=== PATIENT | male | born 1990 | race Two or more races ===

== ENCOUNTER 2024-12-26 11:37 | Emergency (ER) | payer OTHER ==
[~2024-12-26] VITALS: Ht 170.2 cm; Wt 88.5 kg
[2024-12-26] MEDS ORDERED: HYDROGEN PEROXIDE 473 ML BOTTLE TOP ONE (11:39)
[2024-12-26] MEDS ORDERED: POVIDONE-IODINE 118 ML BOTT TOP ONE ×2 (11:39→12:21)
[2024-12-26] MEDS ORDERED: WELLBUTRIN SR150 MG (11:53)
[2024-12-26] MEDS ORDERED: SEROQUEL50 MG (11:53)
[2024-12-26] MEDS ORDERED: PAXIL CR25 MG (11:53)
[2024-12-26] MEDS ORDERED: BUSPIRONE HCL7.5 MG (11:53)
[2024-12-26] MEDS ORDERED: TRAZODONE HCL50 MG (11:54)
[2024-12-26] MEDS ORDERED: LIDOCAINE HCL 1% 10ML VIAL ONE ×2 (12:23→13:59)
[2024-12-26] MEDS ORDERED: POVIDONE-IODINE SCRUB 118 ML BOTT TOP ONE (12:30)
[2024-12-26] MEDS ORDERED: ACETAMINOPHEN WITH CODEINE 1 UDTAB TABLET PO ONE (12:30)
[2024-12-26] MEDS ORDERED: TETANUS & DIPHTHERIA TOX,ADULT 0.5 ML VIAL IM ONE (12:30)
[2024-12-26] MEDS ORDERED: LIDOCAINE HCL 1% 10ML VIAL PERCUT ONE (12:45)
[2024-12-26] MEDS ORDERED: DIPHTH,PERTUSS(ACELL),TET VAC 0.5 ML SYRINGE IM ONE (13:34)
[2024-12-26] MEDS ORDERED: CEFTRIAXONE SODIUM 1,000 MG VIAL IM ONE (14:00)
[2024-12-26] MEDS ORDERED: CEFTRIAXONE SODIUM 1,000 MG VIAL ONE (14:00)
== END 2024-12-26 18:06 | disposition home or self-care (01) ==
LOC: ER 11:37
DX: S61.217A Laceration without foreign body of left little finger without damage to nail, initial encounter (principal); S69.92XA Unspecified injury of left wrist, hand and finger(s), initial encounter; X58.XXXA Exposure to other specified factors, initial encounter; Y93.89 Activity, other specified; Y92.69 Other specified industrial and construction area as the place of occurrence of the external cause; Y99.8 Other external cause status; Z88.6 Allergy status to analgesic agent
CPT/HCPCS: 12002; 73120; 90471; 90714; J1670